=== PATIENT | female | born 1955 | race Caucasian/White ===

== ENCOUNTER 2022-11-22 14:45 | Outpatient (CLI) | payer MEDICARE ==
[~2022-11-22] VITALS: Ht 165.1 cm; Wt 54.5 kg
[~2022-11-22 14:45] MED LIST: ALBUTEROL SULFATE 2.5MG/0.5ML INH NEB SOLN INH PRN; EPINEPHrine INJ 1 MG/ML 1ML AMP IM PRN; diphenhydrAMINE 50MG/ML VIAL IV PRN; methylPREDNISolone 125MG 2ML VIAL IV PRN
[2022-11-22] MEDS ORDERED: ACETAMINOPHEN 500 MG TAB PO ONE (15:35)
[2022-11-22 15:43] VITALS: BP 144/69; O2SAT 100
[2022-11-22 16:01] LABS: BLOOD UREA NITROGEN 17 MG/DL (9-23); CALCIUM LEVEL 9.1 MG/DL (8.3-10.6); CARBON DIOXIDE LEVEL 28 MMOL/L (20-31); CHLORIDE LEVEL 106 MMOL/L (98-107); CREATININE FOR GFR 0.95 MG/DL (0.55-1.30); GLOMERULAR FILTRATION RATE > 60.0 (>45); GLUCOSE, FASTING 53 MG/DL (74-106); SODIUM LEVEL 143 MMOL/L (136-145)
[2022-11-22] MEDS ORDERED: ZOLEDRONIC ACID 5 MG in IV 1 EA IV ONE (16:10)
[2022-11-22 16:45] VITALS: BP 126/64; O2SAT 100
== END 2022-11-22 16:45 | disposition home or self-care (01) ==
LOC: M INFU 14:45
PROVIDERS: ATTEND Internal Medicine Endocrinology, Diabetes & Metabolism
DX: M81.0 Age-related osteoporosis without current pathological fracture (principal); Z88.2 Allergy status to sulfonamides
CPT/HCPCS: 36415; 80048; 96413; J3489